=== PATIENT | female | born 1955 | race Caucasian/White ===

== ENCOUNTER 2016-05-31 09:13 | Day surgery (SDC) | payer MEDICAID ==
[2016-05-31] MEDS ORDERED: Sodium Chloride 0.9% 1,000 ML IV SCH (09:45)
[2016-05-31] MEDS ORDERED: Propofol 200 MG/20 ML SDV ONE (11:00)
[2016-05-31] MEDS ORDERED: fentaNYL 100 MCG/2 ML SDV ONE (11:00)
[2016-05-31] MEDS ORDERED: Midazolam 1 MG/ML 2 ML SDV ONE (11:00)
[2016-05-31] MEDS ORDERED: Ketorolac 60 MG/2 ML SDV ONE (11:03)
[2016-05-31 12:50] VITALS: BP 109/59
--- NOTE | 2016-05-31 17:09 | OR ---
DATE OF PROCEDURE: 05/31/2016 PROCEDURE: EGD. FINDINGS: Inflammation of the GE junction consistent with reflux disease (biopsied in all four quadrants using cold biopsy forceps). COMPLICATIONS: None. 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 ANESTHESIA: MAC PREOPERATIVE DIAGNOSIS: Epigastric pain. POSTOPERATIVE DIAGNOSIS: Epigastric pain. Risks benefits, alternatives, and limitations, including, but not limited to infection, bleeding, and perforation were explained to the patient and wished to proceed. PROCEDURE IN DETAIL: The patient was placed in left lateral decubitus position. The EGD scope was introduced and advanced atraumatically to the second part of the duodenum. The scope was brought back into the stomach and retroflexed. The patient was noted to have inflammation at the GE junction consistent with reflux disease. This was biopsied x4 using cold biopsy forceps. The patient also noted to have a small hiatal hernia. The remainder of the stomach and esophagus was normal. The patient tolerated procedure well. Figueroa Brown MD /[id number]
== END 2016-05-31 13:05 | disposition home or self-care (01) ==
LOC: JP.SDS 09:13
PROVIDERS: ATTEND Surgery
PROC: 0DB48ZX Excision of Esophagogastric Junction, Via Natural or Artificial Opening Endoscopic, Diagnostic (ICD-10-PCS; principal; 2016-05-31)
DX: K22.70 Barrett's esophagus without dysplasia (principal); K21.0 Gastro-esophageal reflux disease with esophagitis
CPT/HCPCS: 43239; J2250; J2704; J3010; J7040; 88305; J1885

== ENCOUNTER 2016-09-29 23:59 | Emergency (ER) | payer MEDICAID ==
[2016-09-30 00:11] VITALS: BP 148/84
--- NOTE | 2016-09-30 01:24 | EDM.PDOC ---
ED HPI GENERAL MEDICAL PROBLEM - General Chief Complaint: Flank Pain Stated Complaint: R SIDE FLANK PAIN / DIFFICULTY BREATHING Time Seen by Provider: 09/30/16 01:18 Source of Information: Reports: Patient, RN Notes Reviewed History Limitations: Reports: No Limitations - History of Present Illness INITIAL COMMENTS - FREE TEXT/NARRATIVE: 60-year-old female presents emergency department day complaint of right upper quadrant lower rib cage pain pain started earlier today is constant, sharp stabbing difficult to take a deep breath, denies any other symptoms right rib pain Pain Score (Numeric/FACES): 8 - Related Data Allergies Allergy/AdvReac Type Severity Reaction Status Date / Time ciprofloxacin Allergy Severe Itching Verified 09/30/16 00:35 venlafaxine HCl Allergy Intermediate Sweating Verified 09/30/16 00:35 [From Effexor] Home Meds: Home Meds Acamprosate [Campral] 666 mg PO TIDMEALS 01/03/16 [History] Aspirin [Adult Low Dose Aspirin EC] 81 mg PO DAILY 01/03/16 [History] Calcium Carbonate 1,250 mg PO DAILY 01/03/16 [History] Cholecalciferol (Vitamin D3) [Vitamin D] 2,000 unit PO DAILY 01/03/16 [History] Cyanocobalamin (Vitamin B-12) [Vitamin B-12] 1,000 mcg PO DAILY 01/03/16 [ History] Ibuprofen [Motrin] 600 mg PO Q6H PRN 01/03/16 [History] Ipratropium [Atrovent 0.06% Nasal [place]] 2 sprays [place] TID 01/03/16 [History] Metoprolol Succinate [Toprol XL] 50 mg PO DAILY 01/03/16 [History] Multivitamin with Minerals [Multiple Vitamin] 1 tab PO DAILY 01/03/16 [History] Pravastatin [Pravachol] 80 mg PO BEDTIME 01/03/16 [History] Venlafaxine [Effexor XR] 75 mg PO DAILY 01/03/16 [History] Vitamin B Complex [B Complex] 1 each PO DAILY 01/03/16 [History] Vitamin E 200 unit PO DAILY 01/03/16 [History] busPIRone [Buspar] 10 mg PO TID 01/03/16 [History] traZODone 50 mg PO BEDTIME 01/03/16 [History] Omeprazole Magnesium [Prilosec Otc] 20 mg PO DAILY 05/29/16 [History] Amoxicillin 125 mg PO BID 05/31/16 [History] Past Medical History HEENT History: Reports: Impaired Vision Cardiovascular History: Reports: Heart Murmur, High Cholesterol, Hypertension Gastrointestinal History: Reports: Chronic Diarrhea, GERD, Other (See Below) Other Gastrointestinal History: ulcerative colitis 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 OB/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 History: Ovarian cyst (12#) Musculoskeletal History: Reports: Osteoarthritis, Other (See Below) Other Musculoskeletal History: DJD neck Psychiatric History: Reports: Depression Endocrine/Metabolic History: Reports: Obesity/BMI 30+, Osteopenia - Infectious Disease History Infectious Disease History: Reports: Chicken Pox, Measles - Past Surgical History Head Surgeries/Procedures: Reports: None HEENT Surgical History: Reports: Oral Surgery, Tonsillectomy Cardiovascular Surgical History: Reports: None Respiratory Surgical History: Reports: None GI Surgical History: Reports: Appendectomy, Cholecystectomy, Colonoscopy Female Surgical History: Reports: Hysterectomy, Salpingo-Oophorectomy Endocrine Surgical History: Reports: None Neurological Surgical History: Reports: None Musculoskeletal Surgical History: Reports: None Oncologic Surgical History: Reports: None Dermatological Surgical History: Reports: None Social & Family History - Tobacco Use Smoking Status *Q: Never Smoker Years of Tobacco use: 20 Packs/Tins Daily: 1 Used Tobacco, but Quit: Yes Month Tobacco Last Used: mar Second Hand Smoke Exposure: No - Caffeine Use Caffeine Use: Reports: Coffee - Alcohol Use Days Per Week of Alcohol Use: 4 Number of Drinks Per Day: 1 Total Drinks Per Week: 4 - Recreational Drug Use Recreational Drug Use: No ED ROS GENERAL - Review of Systems Review Of Systems: See Below Constitutional: Reports: No Symptoms HEENT: Reports: No Symptoms Respiratory: Reports: Shortness of Breath Cardiovascular: Reports: No Symptoms GI/Abdominal: Reports: Abdominal Pain (Right upper quadrant). Denies: Constipation, Diarrhea, Nausea, Vomiting : Reports: No Symptoms Musculoskeletal: Reports: No Symptoms Skin: Reports: No Symptoms ED EXAM, GI/ABD - Physical Exam Exam: See Below Exam Limited By: No Limitations General Appearance: Alert, WD/WN, No Apparent Distress Head: Atraumatic, Normocephalic Neck: Normal Inspection, Supple, Non-Tender, Full Range of Motion Respiratory/Chest: No Respiratory Distress, Lungs Clear, Normal Breath Sounds, No Accessory Muscle Use, Other (Tender over rib cage right upper quadrant area) Cardiovascular: Regular Rate, Rhythm, No Murmur GI/Abdominal: Soft, Non-Tender Course - Vital Signs Last Recorded V/S: Last Vital Signs Temp 95.9 F 09/30/16 00:10 Pulse 86 09/30/16 00:10 Resp 18 09/30/16 00:10 BP 148/84 H 09/30/16 00:10 Pulse Ox 94 L 09/30/16 00:10 - Orders/Labs/Meds Orders: Active Orders 24 hr Category Date Time Status Chest 2V [CR] Urgent Exams 09/30/16 01:22 Taken Labs: Laboratory Tests 09/30/16 09/30/16 09/30/16 Range/Units 01:32 01:32 01:32 WBC 7.3 (4.5-11.0) K/uL RBC 4.85 (3.30-5.50) M/uL Hgb 14.8 (12.0-15.0) g/dL Hct 43.5 (36.0-48.0) % MCV 90 (80-98) fL MCH 31 (27-31) pg MCHC 34 (32-36) % Plt Count 197 (150-400) K/uL Neut % (Auto) 57 (36-66) % Lymph % (Auto) 27 (24-44) % [place] % (Auto) 14 H (2-6) % Eos % (Auto) 2 (2-4) % Baso % (Auto) 1 (0-1) % D-Dimer, Quantitative 106 (0.0-400.0) ng/mL Sodium 141 (140-148) mmol/L Potassium 4.1 (3.6-5.2) mmol/L Chloride 104 (100-108) mmol/L Carbon Dioxide 31 (21-32) mmol/L Anion Gap 6.1 (5.0-14.0) mmol/L BUN 18 (7-18) mg/dL Creatinine 0.9 (0.6-1.0) mg/dL Est Cr Clr Drug Dosing 57.14 mL/min Estimated GFR (MDRD) > 60 (>60) Glucose 109 H (74-106) mg/dL Calcium 8.9 (8.5-10.1) mg/dL Total Bilirubin 0.5 (0.2-1.0) mg/dL AST 23 (15-37) U/L ALT 48 (12-78) U/L Alkaline Phosphatase 72 (46-116) U/L Troponin I < 0.017 (0.000-0.056) ng/mL Total Protein 7.7 (6.4-8.2) g/dL Albumin 3.8 (3.4-5.0) g/dL Globulin 3.9 H (2.3-3.5) g/dL Albumin/Globulin Ratio 1.0 L (1.2-2.2) Lipase 154 (73-393) U/L Urine Color Urine Appearance Urine pH (4.5-8.0) Ur Specific [place] (1.008-1.030) Urine Protein (NEGATIVE) mg/dL Urine Glucose (UA) (NEGATIVE) mg/dL Urine Ketones (NEGATIVE) mg/dL Urine Occult Blood (NEGATIVE) Urine Nitrite (NEGATIVE) Urine Bilirubin (NEGATIVE) Urine Urobilinogen (NORMAL) mg/dL Ur Leukocyte Esterase (NEGATIVE) Urine RBC (0-5) Urine WBC (0-5) Ur Epithelial Cells Amorphous Sediment Urine Bacteria Urine Mucus 09/30/16 Range/Units 02:33 WBC (4.5-11.0) K/uL RBC (3.30-5.50) M/uL Hgb (12.0-15.0) g/dL Hct (36.0-48.0) % MCV (80-98) fL MCH (27-31) pg MCHC (32-36) % Plt Count (150-400) K/uL Neut % (Auto) (36-66) % Lymph % (Auto) (24-44) % [place] % (Auto) (2-6) % Eos % (Auto) (2-4) % Baso % (Auto) (0-1) % D-Dimer, Quantitative (0.0-400.0) ng/mL Sodium (140-148) mmol/L Potassium (3.6-5.2) mmol/L Chloride (100-108) mmol/L Carbon Dioxide (21-32) mmol/L Anion Gap (5.0-14.0) mmol/L BUN (7-18) mg/dL Creatinine (0.6-1.0) mg/dL Est Cr Clr Drug Dosing mL/min Estimated GFR (MDRD) (>60) Glucose (74-106) mg/dL Calcium (8.5-10.1) mg/dL Total Bilirubin (0.2-1.0) mg/dL AST (15-37) U/L ALT (12-78) U/L Alkaline Phosphatase (46-116) U/L Troponin I (0.000-0.056) ng/mL Total Protein (6.4-8.2) g/dL Albumin (3.4-5.0) g/dL Globulin (2.3-3.5) g/dL Albumin/Globulin Ratio (1.2-2.2) Lipase (73-393) U/L Urine Color Yellow Urine Appearance Cloudy Urine pH 5.0 (4.5-8.0) Ur Specific [place] 1.025 (1.008-1.030) Urine Protein Negative (NEGATIVE) mg/dL Urine Glucose (UA) Normal (NEGATIVE) mg/dL Urine Ketones Negative (NEGATIVE) mg/dL Urine Occult Blood Negative (NEGATIVE) Urine Nitrite Negative (NEGATIVE) Urine Bilirubin Negative (NEGATIVE) Urine Urobilinogen Normal (NORMAL) mg/dL Ur Leukocyte Esterase Large (NEGATIVE) Urine RBC 0-5 (0-5) Urine WBC 10-20 H (0-5) Ur Epithelial Cells Few Amorphous Sediment Not seen Urine Bacteria Moderate Urine Mucus Moderate Meds: Medications Discontinued Medications Generic Name Dose Route Start Last Admin Trade Name Freq PRN Reason Stop Dose Admin Ketorolac Tromethamine 60 mg 09/30/16 02:13 09/30/16 02:23 Toradol IM 09/30/16 02:14 60 mg ONETIME ONE Administration Departure - Departure Time of Disposition: 03:10 Disposition: Home, Self-Care 01 Condition: Good Clinical Impression: Flank pain - Discharge Information Forms: ED Department Discharge Additional Instructions: Continued use of Toradol as needed for pain control, Please followup with your primary care provider in 3-5 days if not better, please call return to the emergency department with worsening of symptoms. - My Orders Last 24 Hours: My Active Orders 09/30/16 01:22 Chest 2V [CR] Urgent - Assessment/Plan Last 24 Hours: My Active Orders 09/30/16 01:22 Chest 2V [CR] Urgent Plan: Assessment Acuity = acute Site and laterality = right upper quadrant pain Etiology = unclear etiology Manifestations = none Location of injury = Home Lab values = CBC within normal limits, d-dimer is negative, troponin is negative CMP within normal limits urinalysis does reveal 10-20 WBCs consistent with pyuria cultures pending chest x-ray I did review films myself I cannot appreciate any acute process, the official read from radiology is pending Plan I did review chest x-ray laboratory avulsed urinalysis talked about the possibility of urinary tract infection she declined treatment at this time want to wait until the culture results were back she had good relief from Toradol provided her prescriptions for Toradol: #20 tablets to follow-up with her primary care 3-5 days for reevaluation Patient was in agreement with the plan all questions were answered, they were instructed to return to the emergency department or call for worsening symptoms. This note was dictated using [employer] voice recognition software please call with any questions.
[2016-09-30] MEDS ORDERED: Ketorolac 60 MG/2 ML SDV IM ONE (02:13)
--- NOTE | 2016-09-30 09:44 | CR ---
Chest 2V HISTORY: Chest pain COMPARISON: 03/01/2012 FINDINGS: Cardiac size and pulmonary vessels normal. No focal infiltrates. No effusions.
== END 2016-09-30 03:25 | disposition home or self-care (01) ==
LOC: JP.ED 23:59
DX: R10.11 Right upper quadrant pain (principal); H54.7 Unspecified visual loss; E78.00 Pure hypercholesterolemia, unspecified; I10 Essential (primary) hypertension; E66.9 Obesity, unspecified; K21.9 Gastro-esophageal reflux disease without esophagitis; Z79.82 Long term (current) use of aspirin; Z88.1 Allergy status to other antibiotic agents; Z90.710 Acquired absence of both cervix and uterus; Z79.899 Other long term (current) drug therapy
CPT/HCPCS: 36415; 71020; 80053; 81001; 83690; 84484; 85025; 85379; 99284; J1885

== ENCOUNTER 2017-09-24 09:12 | Emergency (ER) | payer MEDICAID ==
--- NOTE | 2017-09-24 09:31 | EDM.PDOC ---
ED HPI GENERAL MEDICAL PROBLEM - General Chief Complaint: Cardiovascular Problem Stated Complaint: PALPITATIONS Time Seen by Provider: 09/24/17 09:30 Source of Information: Reports: Patient History Limitations: Reports: No Limitations - History of Present Illness INITIAL COMMENTS - FREE TEXT/NARRATIVE: pt arrived with a history of heart irregularities with a increase recently . mild tightness is noted in the chest today. Pt has a history of barrets esophagus. She has not noted the chest tightness in the past. Onset: Today Duration: Week(s):, Other ( She has noted increased irregularity in the heart. ) Location: Reports: Chest Associated Symptoms: Reports: No Other Symptoms - Related Data Allergies Allergy/AdvReac Type Severity Reaction Status Date / Time ciprofloxacin Allergy Severe Itching Verified 09/24/17 09:29 Home Meds: Home Meds Aspirin [Adult Low Dose Aspirin EC] 81 mg PO DAILY 01/03/16 [History] Calcium Carbonate 1,250 mg PO DAILY 01/03/16 [History] Cholecalciferol (Vitamin D3) [Vitamin D] 2,000 unit PO DAILY 01/03/16 [History] Cyanocobalamin (Vitamin B-12) [Vitamin B-12] 1,000 mcg PO DAILY 01/03/16 [ History] Ibuprofen [Motrin] 600 mg PO Q6H PRN 01/03/16 [History] Metoprolol Succinate [Toprol XL] 50 mg PO DAILY 01/03/16 [History] Multivitamin with Minerals [Multiple Vitamin] 1 tab PO DAILY 01/03/16 [History] Pravastatin [Pravachol] 80 mg PO BEDTIME 01/03/16 [History] Vitamin B Complex [B Complex] 1 each PO DAILY 01/03/16 [History] Vitamin E 200 unit PO DAILY 01/03/16 [History] traZODone 50 mg PO BEDTIME 01/03/16 [History] Omeprazole Magnesium [Prilosec Otc] 20 mg PO DAILY 05/29/16 [History] Past Medical History HEENT History: Reports: Impaired Vision Cardiovascular History: Reports: Heart Murmur, High Cholesterol, Hypertension Respiratory History: Reports: None Gastrointestinal History: Reports: Chronic Diarrhea, GERD, Other (See Below) Other Gastrointestinal History: ulcerative colitis Genitourinary History: Reports: None 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 (12#) Musculoskeletal History: Reports: Osteoarthritis, Other (See Below) Other Musculoskeletal History: DJD neck Neurological History: Reports: None Psychiatric History: Reports: Depression Endocrine/Metabolic History: Reports: Obesity/BMI 30+, Osteopenia Hematologic History: Reports: None Immunologic History: Reports: None Oncologic (Cancer) History: Reports: None Dermatologic History: Reports: None - Infectious Disease History Infectious Disease History: Reports: Chicken Pox, Measles - Past Surgical History Head Surgeries/Procedures: Reports: None HEENT Surgical History: Reports: Oral Surgery, Tonsillectomy Cardiovascular Surgical History: Reports: None Respiratory Surgical History: Reports: None GI Surgical History: Reports: Appendectomy, Cholecystectomy, Colonoscopy Female Surgical History: Reports: Hysterectomy, Salpingo-Oophorectomy Endocrine Surgical History: Reports: None Neurological Surgical History: Reports: None Musculoskeletal Surgical History: Reports: None Oncologic Surgical History: Reports: None Dermatological Surgical History: Reports: None Social & Family History - Caffeine Use Caffeine Use: Reports: Coffee ED ROS GENERAL - Review of Systems Review Of Systems: See Below Constitutional: Reports: No Symptoms HEENT: Reports: No Symptoms Respiratory: Reports: No Symptoms Cardiovascular: Reports: Chest Pain, Other ( Pt does not have sharp pain but she is experiencing tightness. ) Endocrine: Reports: No Symptoms GI/Abdominal: Reports: No Symptoms : Reports: No Symptoms Musculoskeletal: Reports: No Symptoms Skin: Reports: No Symptoms Neurological: Reports: No Symptoms Psychiatric: Reports: No Symptoms, Anxiety ED EXAM, GENERAL - Physical Exam Exam: See Below Free Text/Narrative:: pt arrived with slight tightness in the chest. She has had alot more pacs recently. She has not had a stress test in the past. She has some chest tightness at this time. Exam Limited By: No Limitations General Appearance: Alert, Mild Distress Ears: Normal TMs Nose: Normal Inspection Throat/Mouth: Normal Inspection Head: Atraumatic Neck: Normal Inspection Respiratory/Chest: No Respiratory Distress Cardiovascular: Regular Rate, Rhythm, Other (pt is having frequent pacs. ) GI/Abdominal: Soft, Non-Tender (Female) Exam: Deferred Rectal (Female) Exam: Deferred Extremities: Normal Inspection Neurological: Alert, Oriented, Normal Cognition Psychiatric: Normal Affect Course - Vital Signs Last Recorded V/S: Last Vital Signs Temp 36.6 C 09/24/17 09:45 Pulse 68 09/24/17 09:52 Resp 15 09/24/17 09:45 BP 150/69 H 09/24/17 09:52 Pulse Ox 95 09/24/17 09:52 - Orders/Labs/Meds Orders: Active Orders 24 hr Category Date Time Status Cardiac Monitoring [RC] .As Directed Care 09/24/17 09:32 Active EKG Documentation Completion [RC] ASDIRECTED Care 09/24/17 09:30 Active COMPREHENSIVE METABOLIC PN,CMP [CHEM] Urgent Lab 09/24/17 09:30 Ordered CREATINE KINASE,CK [CHEM] Urgent Lab 09/24/17 09:30 Ordered TROPONIN I [CHEM] Stat Lab 09/24/17 09:30 Ordered UA W/MICROSCOPIC [URIN] Urgent Lab 09/24/17 09:50 Ordered EKG 12 Lead [EK] Routine Ther 09/24/17 09:30 Ordered Labs: Laboratory Tests 09/24/17 Range/Units 09:30 WBC 6.5 (4.5-11.0) K/uL RBC 4.81 (3.30-5.50) M/uL Hgb 14.6 (12.0-15.0) g/dL Hct 43.1 (36.0-48.0) % MCV 90 (80-98) fL MCH 30 (27-31) pg MCHC 34 (32-36) % Plt Count 193 (150-400) K/uL Neut % (Auto) 55 (36-66) % Lymph % (Auto) 27 (24-44) % [place] % (Auto) 15 H (2-6) % Eos % (Auto) 3 (2-4) % Baso % (Auto) 0 (0-1) % - Re-Assessments/Exams Free Text/Narrative Re-Assessment/Exam: 09/24/17 11:00 pt has normal cardoac enzymes. She has normal electrolytes, she has a possible uti. She was given asa and 1 nitro. Departure - Departure Time of Disposition: 11:01 Disposition: Home, Self-Care 01 Condition: Fair Clinical Impression: Cardiac arrhythmia, Atypical chest pain Referrals: PCP,None [Primary Care Provider] - Forms: ED Department Discharge Care Plan Goals: rtc for a exercise cardiolyte, rtc if the tightness should get worse, keep cardiology appt. - My Orders Last 24 Hours: My Active Orders 09/24/17 09:30 EKG Documentation Completion [RC] ASDIRECTED COMPREHENSIVE METABOLIC PN,CMP [CHEM] Urgent CREATINE KINASE,CK [CHEM] Urgent TROPONIN I [CHEM] Stat EKG 12 Lead [EK] Routine 09/24/17 09:32 Cardiac Monitoring [RC] .As Directed 09/24/17 09:50 UA W/MICROSCOPIC [URIN] Urgent - Assessment/Plan Last 24 Hours: My Active Orders 09/24/17 09:30 EKG Documentation Completion [RC] ASDIRECTED COMPREHENSIVE METABOLIC PN,CMP [CHEM] Urgent CREATINE KINASE,CK [CHEM] Urgent TROPONIN I [CHEM] Stat EKG 12 Lead [EK] Routine 09/24/17 09:32 Cardiac Monitoring [RC] .As Directed 09/24/17 09:50 UA W/MICROSCOPIC [URIN] Urgent
[2017-09-24] MEDS ORDERED: Aspirin 81 MG Tab.Chew PO ONE (10:15)
[2017-09-24] MEDS ORDERED: Nitroglycerin 0.4 MG Tab.SL SL ONE (10:51)
[2017-09-24 11:00] VITALS: BP 130/82
== END 2017-09-24 11:28 | disposition home or self-care (01) ==
LOC: JP.ED 09:12
DX: I49.9 Cardiac arrhythmia, unspecified (principal); E78.00 Pure hypercholesterolemia, unspecified; I10 Essential (primary) hypertension; K21.9 Gastro-esophageal reflux disease without esophagitis; Z88.1 Allergy status to other antibiotic agents; Z79.82 Long term (current) use of aspirin; Z79.899 Other long term (current) drug therapy
CPT/HCPCS: 36415; 80053; 81001; 82550; 84484; 85025; 87086; 93005; 99284; A9270

== ENCOUNTER 2020-10-05 15:52 | Emergency (ER) | payer MEDICARE ==
[2020-10-05 16:30] VITALS: BP 195/99; PULSE 89
--- NOTE | 2020-10-05 17:22 | EDM.PDOC ---
ED HPI GENERAL MEDICAL PROBLEM - General Chief Complaint: Neck Problem Stated Complaint: NECK INJURY DUE TO FALL Time Seen by Provider: 10/05/20 16:45 Source of Information: Reports: Patient History Limitations: Reports: No Limitations - History of Present Illness INITIAL COMMENTS - FREE TEXT/NARRATIVE: 64-year-old female was standing on a desk trying to replace something on the wall when she lost her balance and fell backwards landing on her upper shoulders and back. This happened about 2 hours ago, she has some neck stiffness and shoulder pain. No loss of consciousness, no headache, visual complaints or nausea or vomiting. Onset: Sudden Duration: Hour(s): (Just less than 2 hours ago) Location: Reports: Neck, Back, Other (Posterior shoulders especially on the left) Quality: Reports: Sharp, Stabbing Worsens with: Reports: Other (Extremely tender to even light palpation), Movement Associated Symptoms: Denies: Malaise, Nausea/Vomiting, Shortness of Breath, Weakness - Related Data Allergies Allergy/AdvReac Type Severity Reaction Status Date / Time ciprofloxacin Allergy Severe Itching Verified 10/05/20 16:30 Home Meds: Home Meds Calcium Carbonate 1,250 mg PO DAILY 01/03/16 [History] Cholecalciferol (Vitamin D3) [Vitamin D] 2,000 unit PO DAILY 01/03/16 [History] Cyanocobalamin (Vitamin B-12) [Vitamin B-12] 1,000 mcg PO DAILY 01/03/16 [ History] Ibuprofen [Motrin] 600 mg PO Q6H PRN 01/03/16 [History] Metoprolol Succinate [Toprol XL] 50 mg PO DAILY 01/03/16 [History] Multivitamin with Minerals [Multiple Vitamin] 1 tab PO DAILY 01/03/16 [History] Pravastatin [Pravachol] 80 mg PO BEDTIME 01/03/16 [History] Vitamin B Complex [B Complex] 1 each PO DAILY 01/03/16 [History] Vitamin E 200 unit PO DAILY 01/03/16 [History] traZODone 50 mg PO BEDTIME 01/03/16 [History] Omeprazole Magnesium [Prilosec Otc] 20 mg PO DAILY 05/29/16 [History] Past Medical History HEENT History: Reports: Impaired Vision Cardiovascular History: Reports: Heart Murmur, High Cholesterol, Hypertension Respiratory History: Reports: None Gastrointestinal History: Reports: Chronic Diarrhea, GERD, Other (See Below) Other Gastrointestinal History: ulcerative colitis Genitourinary History: Reports: None [employer] History: Reports: Other [employer] History: Ovarian cyst (12#) Musculoskeletal History: Reports: Osteoarthritis, Other (See Below) Other Musculoskeletal History: DJD neck Neurological History: Reports: None Psychiatric History: Reports: Depression Endocrine/Metabolic History: Reports: Obesity/BMI 30+, Osteopenia Hematologic History: Reports: None Immunologic History: Reports: None Oncologic (Cancer) History: Reports: None Dermatologic History: Reports: None - Infectious Disease History Infectious Disease History: Reports: Chicken Pox, Measles - Past Surgical History Head Surgeries/Procedures: Reports: None HEENT Surgical History: Reports: Oral Surgery, Tonsillectomy Cardiovascular Surgical History: Reports: None Respiratory Surgical History: Reports: None GI Surgical History: Reports: Appendectomy, Cholecystectomy, Colonoscopy Female Surgical History: Reports: Hysterectomy, Salpingo-Oophorectomy Endocrine Surgical History: Reports: None Neurological Surgical History: Reports: None Musculoskeletal Surgical History: Reports: None Oncologic Surgical History: Reports: None Dermatological Surgical History: Reports: None Social & Family History - Tobacco Use Tobacco Use Status *Q: Never Tobacco User Second Hand Smoke Exposure: No - Caffeine Use Caffeine Use: Reports: Coffee Caffeine Use Comment: 1. cup coffee daily - Alcohol Use Days Per Week of Alcohol Use: 7 Number of Drinks Per Day: 1 Total Drinks Per Week: 7 - Recreational Drug Use Recreational Drug Use: No ED ROS GENERAL - Review of Systems Review Of Systems: See Below Constitutional: Denies: Fever, Chills, Malaise HEENT: Denies: Vision Change Respiratory: Denies: Shortness of Breath Cardiovascular: Denies: Chest Pain GI/Abdominal: Denies: Abdominal Pain, Nausea, Vomiting Musculoskeletal: Reports: Neck Pain, Shoulder Pain (Especially posterior left shoulder), Other (Also some left lateral chest wall discomfort) Skin: Denies: Bruising Neurological: Reports: No Symptoms ED EXAM, UPPER BACK/NECK PAIN - Physical Exam Exam: See Below Exam Limited By: No Limitations General Appearance: Alert, No Apparent Distress (Not acutely distressed but appears anxious), Anxious Eye Exam: Bilateral Eye: Normal Inspection Head Exam: Atraumatic Neck Exam: Other (Patient has no pain with extension of the neck against resistance or rotation against resistance, but palpation tenderness is significant to the paracervical muscles and left trapezius muscle. She also has significant pain with lateral compression of the chest wall especially on the left side.) Cardiovascular/Respiratory: Regular Rate, Rhythm, Normal Breath Sounds, No Respiratory Distress GI/Abdominal: Soft, Non-Tender Extremities: Other (Extremely tender to palpation over the posterior left shoulder, no visual objective signs of trauma) Course - Vital Signs Last Recorded V/S: Last Vital Signs Temp 96.6 F L 10/05/20 16:32 Pulse 89 10/05/20 16:32 Resp 18 10/05/20 16:32 BP 195/99 H 10/05/20 16:32 Pulse Ox 96 10/05/20 16:32 - Re-Assessments/Exams Free Text/Narrative Re-Assessment/Exam: 10/05/20 17:22 The cervical spine x-ray and two-view chest x-ray was obtained. 10/05/20 17:51 X-rays were normal, this was discussed with the patient and she was reassured. She did not want narcotic pain medication, but was receptive to some muscle relaxers to help along with anti-inflammatories. She will recheck in 5 to 7 days if not improving satisfactorily for a physical therapy consult. Departure - Departure Time of Disposition: 18:01 Disposition: Home, Self-Care 01 Clinical Impression: Contusion of left shoulder or upper extremity Cervical strain, acute Qualifiers: Encounter type: initial encounter Qualified Code(s): S16.1XXA - Strain of muscle, fascia and tendon at neck level, initial encounter - Discharge Information Instructions: Cervical Sprain, [id number] Referrals: Ginger Munroe PA [Primary Care Provider] - Forms: ED Department Discharge Care Plan Goals: A regular dose of ibuprofen or Aleve will be helpful, no heat for the next 48 hours, and increase activity as tolerated. Add muscle relaxers as needed to take along with the anti-inflammatories. Ice may be helpful for the next 2 days. Recheck in 5 to 7 days if not improving satisfactorily, a physical therapy consult may be worthwhile. Sepsis Event Note (ED) - Evaluation Sepsis Screening Result: No Definite Risk
--- NOTE | 2020-10-06 08:56 | CR ---
CHEST: 2 view CLINICAL HISTORY:Trauma COMPARISON:None FINDINGS: The heart size, pulmonary vascularity and hilar structures are normal. No infiltrate effusion or pneumothorax is seen. There are atherosclerotic changes in the aorta. IMPRESSION: No acute cardiopulmonary process. Study is limited for rib detail. No definite fracture seen If clinical symptomatology persists or worsens a repeat exam for rib detail is recommended.
--- NOTE | 2020-10-06 08:58 | CR ---
Cervical Spine Min 4V CLINICAL HISTORY: Fall FINDINGS: The vertebral body heights are intact. The disc spaces are narrowed at C5-6 and C6-7. There is accompanying spondylosis. There is reversal of normal cervical doses. This may be spasm. 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
== END 2020-10-05 18:02 | disposition home or self-care (01) ==
LOC: JP.ED 15:52
DX: S16.1XXA Strain of muscle, fascia and tendon at neck level, initial encounter (principal); S40.012A Contusion of left shoulder, initial encounter; E78.00 Pure hypercholesterolemia, unspecified; I10 Essential (primary) hypertension; K21.9 Gastro-esophageal reflux disease without esophagitis; E66.9 Obesity, unspecified; Z68.35 Body mass index [BMI] 35.0-35.9, adult; Z88.1 Allergy status to other antibiotic agents; Z79.899 Other long term (current) drug therapy; W18.30XA Fall on same level, unspecified, initial encounter
CPT/HCPCS: 71046; 71046-26; 72050; 72050-26; 99283-25